=== PATIENT | male | born 1985 | race African-American/Black ===

== ENCOUNTER 2019-05-15 09:12 | Emergency (ER) | payer SELFPAY ==
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
[2019-05-15] MEDS ORDERED: 0.9 % SODIUM CHLORIDE 1,000 ML IV ONE ×2 (10:18→10:28)
[2019-05-15 10:39] LABS: BASOPHILS % 0.5 % (0.0-1.5); NEUTROPHILS # 3.5 # k/uL (1.4-7.7)
[2019-05-15 10:59] LABS: eGFR (Non-African) > 60
[2019-05-15] MEDS ORDERED: KETOROLAC TROMETHAMINE 30 MG/1ML VIAL IV ONE (12:39)
[2019-05-15 13:02] VITALS: BP 127/81
[2019-05-15 13:36] LABS: APPEARANCE,URINE CLEAR (CLEAR); COLOR,URINE YELLOW (YELLOW); OCCULT BLOOD,URINE 1+ (NEGATIVE); PH URINE 5.5 (5.0 - 8.0); UROBILINOGEN URINE 0.2 Eu (0.2-1.0)
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
== END 2019-05-15 14:00 | disposition home or self-care (01) ==
LOC: ED 09:12
DX: M54.9 Dorsalgia, unspecified (principal); R07.89 Other chest pain; V64.5XXA Driver of heavy transport vehicle injured in collision with heavy transport vehicle or bus in traffic accident, initial encounter; Y92.410 Unspecified street and highway as the place of occurrence of the external cause; Y99.8 Other external cause status
CPT/HCPCS: 71260; 72125; 74177; 80053; 81002; 85025; 96361; 96374; 99283; J7030; Q9967; S1016